=== PATIENT | male | born 1955 | race Caucasian/White ===

== ENCOUNTER 2019-01-11 03:45 | Emergency (ER) | payer SELFPAY ==
[~2019-01-11] VITALS: Ht 185.4 cm; Wt 108.0 kg
[2019-01-11 04:09] VITALS: BP 149/83
== END 2019-01-11 04:45 | disposition left against medical advice (07) ==
LOC: ER 03:45
DX: M79.672 Pain in left foot (principal); M79.671 Pain in right foot; R45.1 Restlessness and agitation; J44.9 Chronic obstructive pulmonary disease, unspecified; F17.200 Nicotine dependence, unspecified, uncomplicated; Z86.14 Personal history of Methicillin resistant Staphylococcus aureus infection
CPT/HCPCS: 99283